=== PATIENT | male | born 1950 | race Caucasian/White ===

== ENCOUNTER 2017-09-27 15:05 | Emergency (ER) | payer MEDICAID ==
[~2017-09-27 15:05] MED LIST: Sodium Chloride Irrig Solution 250 ML BOT ONE
[2017-09-27] MEDS ORDERED: Triple Antibiotic Oint 1 GM Packet ONE (15:39)
[2017-09-27] MEDS ORDERED: Adacel (T-DAP) 0.5 ML VIAL ONE (15:43)
== END 2017-09-27 16:20 | disposition home or self-care (01) ==
LOC: MADERS 15:05
DX: S61.211A Laceration without foreign body of left index finger without damage to nail, initial encounter (principal); I25.10 Atherosclerotic heart disease of native coronary artery without angina pectoris; F17.210 Nicotine dependence, cigarettes, uncomplicated; W25.XXXA Contact with sharp glass, initial encounter
CPT/HCPCS: 12002; 90471; 90715; J2001

== ENCOUNTER 2019-04-29 10:02 | Emergency (ER) | payer MEDICARE, OTHER ==
[2019-04-29] MEDS ORDERED: Aspirin Chewable 81 MG TAB ONE (10:13)
[2019-04-29 10:32] LABS: #Basophils 0.1 thou/uL (0.0-0.2); #Eosinphils 0.1 thou/uL (0.0-0.7); #Lymphocytes 0.9 thou/uL (1.20-3.40); #Monocytes 0.4 thou/uL (0.11-0.59); #Neutrophils 4.8 thou/uL (1.40-6.50); %Basophils 1.7 % (0.0-1.0); %Eosinophils 1.2 % (0.0-10.0); %Lymphocytes 14.6 % (21.0-51.0); %Monocytes 5.9 % (0.0-10.0); %Neutrophils 76.6 % (42.0-75.0); Hemoglobin 7.6 g/dL (14.0-18.0); Mean Corpuscular HGB CONC 29.4 g/dL (32.0-36.0); Mean Corpuscular Hemoglobin 19.4 pg (27.0-31.0); Mean Corpuscular Volume 66.1 fL (78.0-98.0); Mean Platelet Volume 6.4 fL (7.4-10.4); Platelet Count 389 thou/uL (130-400); RBC Distribution Width 16.8 % (11.5-14.5); Red Blood Cell (RBC) Count 3.91 mill/uL (4.70-6.10); White Blood Cell (WBC) Count 6.2 thou/uL (4.8-10.8)
[2019-04-29 10:35] LABS: Albumin 4.1 g/dL (3.4-4.8); Alkaline Phosphatase 68 U/L (40-150); Anion Gap 19 mmol/L (10-20); BUN (Urea Nitrogen) 8 mg/dL (8.4-25.7); Bilirubin, Total 0.4 mg/dL (0.2-1.2); Calc. Creatinine Clearance 0 mL/min (70-130); Calcium 9.5 mg/dL (7.8-10.44); Carbon Dioxide 17 mmol/L (23-31); Chloride 103 mmol/L (98-107); Estimated GFR-MDRD 90; Glucose 103 mg/dL (80-115); Potassium 3.9 mmol/L (3.5-5.1); Protein, Total 7.1 g/dL (5.8-8.1); Sodium 135 mmol/L (136-145)
[2019-04-29 10:36] LABS: ALT (SGPT) 9 U/L (8-55); AST (SGOT) 20 U/L (5-34)
[2019-04-29 11:12] LABS: Hypochromia MODERATE=16-30 cells (100X) (0-5/hpf); MDiff Complete? YES; Microcytosis MODERATE=15-30 cells (100X) (0-5/hpf); Platelet Morphology Comment Appears Adequate; Schistocytes SLIGHT = 2-5 cells (100X) (0-1/hpf); Target Cells SLIGHT = 2-5 cells (100X) (0-1/hpf)
--- NOTE | 2019-04-29 11:16 | RAD ---
PORTABLE CHEST: Date: 04/29/19 HISTORY: Chest pain. COMPARISON: Most recent exam available for comparison, which is an 06/29/09 exam. FINDINGS: Heart size within normal limits. There is fullness to the right hilum. I do not believe this is expla ined simply on the basis of portable technique when compared to the previous exam. This is concerning for a right hilar mass. No infiltrative process. IMPRESSION: Findings suspicious for right hilar mass. CT is recommended. Findings telephone to Dr. Rasmussen at the time of this dictation. CODE CR. POS: OFF
[2019-04-29] MEDS ORDERED: Pantoprazole 40 MG VIAL ONE (12:18)
--- NOTE | 2019-04-29 12:18 | CT ---
CT CHEST WITHOUT IV CONTRAST: HISTORY: Right hilar mass. Abnormal chest radiograph. FINDINGS: Absence of IV contrast reduces the sensitivity of the exam probably for mediastinal, hilar and vascul ar structures. There is a right hilar-mediastinal mass/lymphadenopathy measuring 10 x 6.2 x 7.1 cm with obstruction of the right upper lobe bronchus. There is a 4.2 x 3.4 x 4.9 cm subcarinal mass consistent with lymphadenopathy. A 4.7 cm right paracardiac mass likely represents lymphadenopathy. No pleural or pericardial effusions are seen. There are degenerative changes in the spine. No osteoly tic or osteoblastic lesions are noted. There are bilateral adrenal masses measuring 3 cm on the right and 2.5 cm on the left which on this n oncontrasted study do not have characteristics of a benign adenoma. These are highly suspicious for metastatic disease. IMPRESSION: Findings are highly suspicious for malignancy/metastatic disease. Further evaluation with bronchoscopy and PET scan are recommended.
== END 2019-04-29 12:42 | disposition short-term general hospital (02) ==
LOC: MADERS 10:02
DX: R07.9 Chest pain, unspecified (principal); D50.9 Iron deficiency anemia, unspecified; R91.8 Other nonspecific abnormal finding of lung field; I25.10 Atherosclerotic heart disease of native coronary artery without angina pectoris; F17.210 Nicotine dependence, cigarettes, uncomplicated; Z95.5 Presence of coronary angioplasty implant and graft; Z85.46 Personal history of malignant neoplasm of prostate; Z85.59 Personal history of malignant neoplasm of other urinary tract organ
CPT/HCPCS: 71045; 71250; 80053; 80307; 84484; 85025; 85060; 85379; 93005; 94760; 96374; C9113

== ENCOUNTER 2020-11-06 13:45 | Emergency (ER) | payer MEDICARE, MEDICAID ==
[~2020-11-06 13:45] MED LIST changes: +Sodium Chloride 0.9% 1,000 ML BAG ONE; -Sodium Chloride Irrig Solution 250 ML BOT ONE; +Sterile Water Irrigation 250 ML BOT ONE
[2020-11-06] MEDS ORDERED: Sodium Chloride 0.9% 1,000 ML ONE (14:29)
[2020-11-06] MEDS ORDERED: cefTRIAXone\\ROCEPHIN 1 GM VIAL ONE (14:29)
[2020-11-06] MEDS ORDERED: Sodium Chloride 0.9% 100 ML ONE (14:29)
[2020-11-06 14:31] LABS: #Basophils 0.1 thou/uL (0.0-0.2); #Eosinphils 0.1 thou/uL (0.0-0.7); #Lymphocytes 0.4 thou/uL (1.20-3.40); #Monocytes 0.5 thou/uL (0.11-0.59); #Neutrophils 6.7 thou/uL (1.40-6.50); %Basophils 0.8 % (0.0-1.0); %Eosinophils 0.7 % (0.0-10.0); %Lymphocytes 4.9 % (21.0-51.0); %Monocytes 6.2 % (0.0-10.0); %Neutrophils 87.4 % (42.0-75.0); Hemoglobin 12.8 g/dL (14.0-18.0); Mean Corpuscular Volume 87.8 fL (78.0-98.0); Platelet Count 133 thou/uL (130-400); RBC Distribution Width 12.6 % (11.5-14.5); Red Blood Cell (RBC) Count 4.41 mill/uL (4.70-6.10); White Blood Cell (WBC) Count 7.6 thou/uL (4.8-10.8)
[2020-11-06 14:50] LABS: ALT (SGPT) 18 U/L (8-55); AST (SGOT) 16 U/L (5-34); Albumin 4.1 g/dL (3.4-4.8); Alkaline Phosphatase 94 U/L (40-110); Anion Gap 18 mmol/L (10-20); BUN (Urea Nitrogen) 26 mg/dL (8.4-25.7); Bilirubin, Total 0.3 mg/dL (0.2-1.2); Calc. Creatinine Clearance 0 mL/min (70-130); Calcium 9.1 mg/dL (7.8-10.44); Carbon Dioxide 17 mmol/L (23-31); Chloride 105 mmol/L (98-107); Globulin 2.9 g/dL (2.4-3.5); Glucose 200 mg/dL (80-115); Potassium 4.5 mmol/L (3.5-5.1); Sodium 135 mmol/L (136-145)
[2020-11-06] MEDS ORDERED: Bacitracin 1 PK ONE (15:16)
[2020-11-06 16:26] LABS: Anion Gap 13 mmol/L (10-20)
[2020-11-06 16:32] LABS: BUN (Urea Nitrogen) 22 mg/dL (8.4-25.7); Calc. Creatinine Clearance 0 mL/min (70-130); Calcium 7.8 mg/dL (7.8-10.44); Carbon Dioxide 18 mmol/L (23-31); Chloride 110 mmol/L (98-107); Glucose 92 mg/dL (80-115); Potassium 4.4 mmol/L (3.5-5.1); Sodium 137 mmol/L (136-145)
== END 2020-11-06 16:47 | disposition home or self-care (01) ==
LOC: MADERS 13:45
DX: S61.012A Laceration without foreign body of left thumb without damage to nail, initial encounter (principal); L08.9 Local infection of the skin and subcutaneous tissue, unspecified; F17.210 Nicotine dependence, cigarettes, uncomplicated; W26.0XXA Contact with knife, initial encounter
CPT/HCPCS: 71045; 80053; 83605; 84484; 85025; 87040; 93005; 96374; J0696; J3490; J7050

== ENCOUNTER 2021-09-03 13:48 | Outpatient (CLI) | payer MEDICARE, MEDICAID ==
[2021-09-03 14:14] LABS: Anion Gap 14 mmol/L (10-20); BUN (Urea Nitrogen) 11 mg/dL (8.4-25.7); Calc. Creatinine Clearance 0 mL/min (70-130); Calcium 8.4 mg/dL (7.8-10.44); Carbon Dioxide 24 mmol/L (23-31); Chloride 97 mmol/L (98-107); Glucose 90 mg/dL (80-115); Potassium 4.4 mmol/L (3.5-5.1); Sodium 131 mmol/L (136-145)
== END 2021-09-03 13:49 | disposition home or self-care (01) ==
LOC: MADLAB 13:48
PROVIDERS: ATTEND Internal Medicine Nephrology
DX: U07.1 COVID-19 (principal)
CPT/HCPCS: 80048